=== PATIENT | male | born 1995 | race African-American/Black ===

== ENCOUNTER 2017-02-08 23:37 | Emergency (ER) | payer OTHER ==
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
[2017-02-09 02:37] VITALS: BP 121/70
== END 2017-02-09 02:35 | disposition home or self-care (01) ==
LOC: ED 23:37
DX: S01.411A Laceration without foreign body of right cheek and temporomandibular area, initial encounter (principal); X99.9XXA Assault by unspecified sharp object, initial encounter; Y92.9 Unspecified place or not applicable; F17.210 Nicotine dependence, cigarettes, uncomplicated; J45.990 Exercise induced bronchospasm
CPT/HCPCS: 12011; 99282